=== PATIENT | female | born 1955 | race Caucasian/White ===

== ENCOUNTER → 2016-08-01 | Outpatient (CLI) | payer OTHER ==
[~2016-08-01] MED LIST: ALPR0.25 PO; PRLSR20 PO
--- NOTE | 2016-08-02 13:32 | MAMMOGRAPHY REPORT ---
BILATERAL DIGITAL SCREENING MAMMOGRAM TOMOSYNTHESIS WITH CAD: 08/01/2016 CLINICAL HISTORY: Routine screening. Patient has no complaints. TECHNIQUE: Breast tomosynthesis in addition to standard 2D mammography was performed. Current study was also evaluated with a Computer Aided Detection (CAD) system. COMPARISON: Comparison is made to exams dated: 07/28/2015 mammogram, 04/23/2013 mammogram, 06/14/2014 m ammogram, 04/22/2012 mammogram, 04/22/2011 mammogram, and 02/19/2010 mammogram - [facility]. BREAST COMPOSITION: The tissue of both breasts is heterogeneously dense, which may obscure small ma sses. FINDINGS: There is a possible round 5 mm mass seen posterior to the left nipple middle depth on the cc view only, which may represent a cyst. Additionally, there is an asymmetry seen within the right medial breast on the cc view which may represent normal overlapping fibroglandular tissue. Recomme nd spot compression tomosynthesis views and possible breast ultrasound for further evaluation. The remainder of both breasts are stable compared to prior exams, without suspicious masses, calcifi cations, or areas of architectural distortion noted. Scattered bilateral benign appearing calcifica tions are stable. A few other small circumscribed benign-appearing masses are seen within the left breast on the tomosynthesis images, which likely represent cysts. IMPRESSION: ACR BI-RADS CATEGORY 0: INCOMPLETE EVALUATION: NEED ADDITIONAL IMAGING EVALUATION Right breast asymmetry and possible left breast mass, for which additional imaging evaluation is rec ommended. The patient will be called to schedule an appointment. Approximately 10% of breast cancers are not detected with mammography. A negative mammographic repor t should not delay biopsy if a clinically suggestive mass is present. Nessa Ponce M.D. ah/:08/02/2016 08:22:18 Patient Biller: Flor WAKEFIELD(Marj)([place]), [facility] letter sent: Addl Imaging 0 BI-RADS Code: ACR BI-RADS Category 0: Incomplete Evaluation: Need Additional Imaging Evaluation
== END | disposition home or self-care (01) ==
LOC: C.MAMM 08:41
PROVIDERS: ATTEND Internal Medicine
DX: Z12.31 Encounter for screening mammogram for malignant neoplasm of breast (principal); N64.89 Other specified disorders of breast

== ENCOUNTER → 2016-08-08 | Outpatient (CLI) | payer OTHER ==
--- NOTE | 2016-08-08 15:08 | MAMMOGRAPHY REPORT ---
BILATERAL DIGITAL DIAGNOSTIC MAMMOGRAM TOMOSYNTHESIS AND TARGETED BILATERAL ULTRASOUND: 08/08/2016 CLINICAL HISTORY: Callback from screening mammogram for possible right breast asymmetry and possible left breast mass. TECHNIQUE: Breast tomosynthesis in addition to standard 2D mammography was performed. Spot raudel faby right CC and left CC and MLO tomosynthesis images including C views were obtained. COMPARISON: Comparison is made to exams dated: 08/01/2016 mammogram, 07/28/2015 mammogram, 06/14/2014 m ammogram, 04/23/2013 mammogram, 04/22/2012 mammogram, and 04/22/2011 mammogram - [facility]. BREAST COMPOSITION: The tissue of both breasts is heterogeneously dense, which may obscure small ma sses. FINDINGS: The previously seen possible round mass posterior to the nipple on the cc view left breas t is not clearly evident on the additional images. A linear scar marker was placed at the site of p rior surgery in the right breast. The linear scar marker overlies the asymmetry within the right me dial anterior breast, indicating that the asymmetry likely represents post surgical changes. Targeted ultrasound was performed of the right medial anterior breast in the region of the asymmetry . A hypoechoic region extending to the skin is seen in the right breast at 1:00, 2 cm from the nipp le, consistent with a postsurgical scar. A few small round circumscribed hypoechoic/anechoic masses are also seen in this region, the largest measuring 3 x 3 mm, consistent with complicated cysts. T he post surgical scar corresponds with the mammographic asymmetry and is benign. Targeted ultrasound was performed of the left 12:00/retroareolar, and 6:00 breast in the region of t he possible mass seen on one view only. Multiple round/oval anechoic and hypoechoic masses are note d, which are considered benign given the multiplicity and bilaterality and are consistent with simpl e and complicated cysts. The largest measures 6 x 6 mm in the left breast at 12:00 periareolar peace on. One of these cysts could correspond with the mammographic finding. Alternatively, the mammogra phic finding could represent normal overlapping fibroglandular tissue. Echogenic material is seen t hroughout mildly dilated milk ducts within the left subareolar region, consistent with proteinaceous material. The patient denies any left nipple discharge. No suspicious solid masses were evident. IMPRESSION: ACR BI-RADS CATEGORY 2: BENIGN, TARGETED ULTRASOUND ACR BI-RADS CATEGORY 2: BENIGN 1. The right breast asymmetry is benign and corresponds with a scar from prior surgery. 2. Multiple small benign simple and complicated cysts seen bilaterally on ultrasound. There is no mammographic or targeted sonographic evidence of malignancy. A 1 year screening mammogra m is recommended. The patient has been verbally notified of the results. Approximately 10% of breast cancers are not detected with mammography. A negative mammographic repor t should not delay biopsy if a clinically suggestive mass is present. Nessa Ponce M.D. ah/:08/08/2016 12:04:49 Seed Specialist: Clarence WAKEFIELD(R)(M), [facility] letter sent: Normal 1/2 BI-RADS Code: ACR BI-RADS Category 2: Benign Ultrasound BI-RADS: ACR BI-RADS Category 2: Benign
== END | disposition home or self-care (01) ==
LOC: C.MAMM 10:54
PROVIDERS: ATTEND Internal Medicine
DX: N60.01 Solitary cyst of right breast (principal); N60.02 Solitary cyst of left breast

== ENCOUNTER → 2017-08-04 | Outpatient (CLI) | payer OTHER ==
[~2017-08-04] MED LIST changes: -ALPR0.25 PO; +GLUCTAB7 PO; +MULT-506 PO; +SERT25TA PO
--- NOTE | 2017-08-05 07:38 | MAMMOGRAPHY REPORT ---
BILATERAL DIGITAL SCREENING MAMMOGRAM TOMOSYNTHESIS WITH CAD: 08/04/2017 CLINICAL HISTORY: Routine screening. Patient has no complaints. TECHNIQUE: Breast tomosynthesis in addition to standard 2D mammography was performed. Current study was also evaluated with a Computer Aided Detection (CAD) system. COMPARISON: Comparison is made to exams dated: 08/08/2016 mammogram, 08/01/2016 mammogram, 07/28/2015 m ammogram, 06/14/2014 mammogram, 04/23/2013 mammogram, and 04/22/2012 mammogram - [facility]. BREAST COMPOSITION: The tissue of both breasts is heterogeneously dense, which may obscure small mas ses. FINDINGS: There are a few benign-appearing round and punctate microcalcifications in the breasts. No suspicious mass, architectural distortion or cluster of suspicious microcalcifications is seen. IMPRESSION: ACR BI-RADS CATEGORY 1: NEGATIVE There is no mammographic evidence of malignancy. A 1 year screening mammogram is recommended. The pa tient will receive written notification of the results. Approximately 10% of breast cancers are not detected with mammography. A negative mammographic report should not delay biopsy if a clinically suggestive mass is present. Maddie Baker M.D. ay/:08/04/2017 11:23:47 Card Hand: Amina WAKEFIELD(Marj)(M), [facility] letter sent: Normal 1/2 BI-RADS Code: ACR BI-RADS Category 1: Negative
== END | disposition home or self-care (01) ==
LOC: C.MAMM 08:30
PROVIDERS: ATTEND Internal Medicine
DX: Z12.31 Encounter for screening mammogram for malignant neoplasm of breast (principal)

== ENCOUNTER 2022-04-18 13:40 | Inpatient (IN) ==
[2022-04-18 14:55] LABS: Basophils # (auto) 0.02 K/uL (0-0.2); Basophils % (auto) 0.1 %; Hematocrit (blood only) 42.1 % (34.1-44.9); Hemoglobin 14.2 g/dl (12.0-16.0); Immature Granulocytes # (auto) 0.07 K/uL (0.00-0.02); Immature Granulocytes % (auto) 0.4 %; Lymphocytes # (auto) 1.27 K/uL (1.2-3.4); Lymphocytes % (auto) 7.2 %; Mean Corpuscular Hemoglobin 28.3 pg (25.0-34.0); Mean Corpuscular Hgb Conc 33.7 g/dL (32.0-36.0); Mean Platelet Volume 9.3 fL (9.4-12.3); Monocytes # (auto) 0.84 K/uL (0.24-0.82); Monocytes % (auto) 4.7 %; Neutrophils # (auto) 15.53 K/uL (1.4-6.5); Neutrophils % (auto) 87.6 %; Platelet Count 298 K/uL (130-400); RDW Coefficient of Variation 12.9 % (11.5-14.5); RDW Standard Deviation 38.9 fL (36.4-46.3); Red Blood Count 5.01 M/uL (3.93-5.22); White Blood Count 17.73 K/ul (4.8-10.8)
[2022-04-18 15:27] LABS: Albumin Globulin Ratio 1.6 (0.9-2); Albumin Level 4.4 gm/dl (3.4-5.0); BUN Creatinine Ratio 24.3 (10-20); Calcium 9.1 mg/dl (8.5-10.1); Creatinine Clr Calc Pharmacy 92.9 ml/min; Est GFR (African American) 106.1 ml/min; Est GFR (Non-African American) 91.6 ml/min; Globulin 2.7 gm/dl (2.5-4.0); Potassium 4.2 mmol/L (3.5-5.1); Total Protein 7.1 gm/dl (6.0-8.3)
[2022-04-18] MEDS ORDERED: KETOROLAC TROMETHAMINE 15 MG/ML VIAL IV STA (16:18)
[2022-04-18] MEDS ORDERED: ONDANSETRON INJ 2 MG/ML 2 ML VIAL IV STA (16:18)
[2022-04-18] MEDS ORDERED: SODIUM CHLORIDE 0.9% 1000ML 1,000 ML IV ONE ×2 (16:18→18:56)
--- NOTE | 2022-04-18 17:51 | XRay Report ---
XR abdomen 2V w PA chest HISTORY: 66 years-old Female epigastric ruq pain acute upper abdominal pain COMPARISON: Bladder ultrasound of same day, CT abdomen and pelvis 10/11/2021 TECHNIQUE: PA view the chest with erect and supine views of the abdomen FINDINGS: Cardiac mediastinal and hilar silhouettes are within normal limits. No pneumothorax, pleural effusion , airspace consolidation or overt pulmonary edema. Unchanged right hemidiaphragmatic elevation. Bones appear grossly intact. Moderate pneumoperitoneum. The liver is upper limits of normal in size. Air-filled loops of bowel wit hin the central abdomen measuring up to 6.5 cm with air-fluid level. This is presumably a small bowel loop. Moderate fecal retention of the left hemicolon. No urolith identified. No pneumatosis. IMPRESSION: 1. Moderate pneumoperitoneum suspicious for perforated viscus. Correlation with CT abdomen and pelvis with IV contrast recommended. 2. Distended air and fluid-filled loop of small bowel within the central abdomen, also likely present on the study from 10/11/2021. ACT 112: Negative or not required by law. The above report was generated using voice recognition software. It may contain grammatical, syntax o r spelling errors. Electronically signed by: Bk Dawson M.D. 04/18/2022 5:49 PM
[2022-04-18] MEDS ORDERED: OPTIRAY 350 100ml IV ONE (18:03)
--- NOTE | 2022-04-18 18:05 | Ultrasound Report ---
US gallbladder CLINICAL HISTORY: RUQ pain TECHNIQUE: Multiple real-time sonographic images of the right upper quadrant were obtained. Comparison: Comparison is made to CT abdomen pelvis 10/11/2021 FINDINGS: Hepatomegaly is seen, the liver measures 19.2 cm in length. The main portal vein is hepatopedal. No f ocal mass lesions are seen. No intrahepatic ductal dilatation is seen. Low level internal echoes are identified layering dependently within the gallbladder, which is consistent with gallbladder slud ge. The gallbladder wall is not thickened. There is no pericholecystic fluid present. Lara's sign cannot be assessed as the patient received pain medication. The common duct measures 0.5 cm in diamet er at the level of the hepatic artery. The visualized portions of the pancreas appear normal. The right kidney shows normal echogenicity, cortical thickness and renal contour. The right kidney sh ows no evidence of hydronephrosis or mass. No ascites or free fluid is seen in Cope's pouch. IMPRESSION: Gallbladder sludge without evidence of acute cholecystitis. Lara's sign is not well evaluated due t o pain medication. Hepatomegaly is seen. ACT 112: Negative or not required by law. Electronically signed by: Laci Prescott M.D. 04/18/2022 6:03 PM
--- NOTE | 2022-04-18 18:07 | Emergency Department Note ---
History of Present Illness General Chief Complaint: Abdominal Pain Stated Complaint: ABDOMINAL PAIN Time Seen by Provider: 04/18/22 16:15 History of Present Illness Provider Complaint: abdominal pain Onset (ago): 1 day(s) Pain Consistency: constant Location: RUQ and epigastric Radiation: back Severity: moderate Maximum Pain Intensity: 7 Current Pain Intensity: 7 Quality: + stabbing and + sharp Relieved By: + nothing Exacerbated By: + nothing Context: + possible food poisoning (States it began after eating [place] [employer]); no foreign travel, no recent antibiotic use or no recent surgery/procedure Associated Symptoms: + nausea and + vomiting; no fever, no chills, no constipation, no dysuria, no hematemesis, no hematochezia, no melena, no hematuria, no headache, no neck pain and no chest pain Related Data Patient Confirmed : No Home Medications Medication Instructions Recorded Confirmed Type ascorbic acid (vitamin C) 500 mg 500 mg PO DAILY 06/09/18 04/18/22 History tablet (Vitamin C) elderberry fruit 460 mg-elderberry 1 cap PO DAILY 02/02/21 04/18/22 History flower 115 mg capsule cholecalciferol (vitamin D3) 25 25 mcg PO DAILY 10/11/21 04/18/22 History mcg (1,000 unit) capsule atorvastatin 10 mg tablet 10 mg PO QPM #90 tabs 02/13/22 04/18/22 Rx omeprazole 20 mg capsule,delayed 20 mg PO DAILY #30 caps 02/13/22 04/18/22 Rx release doxycycline hyclate 100 mg capsule 100 mg PO BID 04/18/22 04/18/22 History Allergies Allergy/AdvReac Type Severity Reaction Status Date / Time Penicillins Allergy Intermediate HIVES A Verified 04/18/22 16:34 CHILD escitalopram AdvReac Intermediate INCREASED Verified 04/18/22 16:34 ANXIETY hydrocodone AdvReac Intermediate HEART Verified 04/18/22 16:34 RACES, FEELS LOOPY oxycodone AdvReac Intermediate HEART Verified 04/18/22 16:34 RACES, FEELS LOOPY venlafaxine AdvReac Intermediate INCREASED Verified 04/18/22 16:34 ANXIETY Past Med/Surg History Medical History Acid reflux disease Anxiety Aortic atherosclerosis on CT 09/2021 Chest pain (04/02/13) Degenerative disc disease LUMBAR Dizziness SANTANA (dyspnea on exertion) Encounter for pre-operative examination Gait disturbance Gastritis GERD (gastroesophageal reflux disease) Headache Near syncope Osteoarthritis Peripheral neuropathy Sensation of fullness in left ear Strain of knee and leg, right Tachycardia Varicose vein of leg LEFT LEG Vertigo Vertigo Surgical History Family history of reaction to anesthesia NAUSEA AND VERTIGO H/O: hysterectomy History of appendectomy History of colonoscopy History of herniorrhaphy History of hysterectomy History of tooth extraction Nausea and vomiting after administration of anesthetic agent Family History Uncle Family hx of colon cancer Father Coronary heart disease Brother Skin cancer Afib Mother Stroke Social History Smoking Status: Never smoker Second Hand Exposure: No; Hx Alcohol Use: Yes Hx Substance Use: No Preferred Language: Turkish Communication Ability: Effective Visual Impairment: No Limitations Hearing Ability: Normal Draw 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 Required: No Beliefs That Will Affect Care: None Current Living Situation: Alone current occupational status: employed Feels Safe at Home: Yes Assistive Devices: Contacts and Glasses Physical Exam Vital Signs: Vital Signs - 24 hr 04/18/22 13:55 04/18/22 13:56 04/18/22 15:40 Temperature 36.5 C Temperature Source Temporal Artery Sc an Pulse Rate 125 H 103 H Pulse Rate [Apical ] 105 H Pulse Rhythm Regular Regular Pulse Rhythm [Apic al] Regular Pulse Strength Normal Pulse Strength [Ap ical] Normal Respiratory Rate 20 20 20 Respiratory Effort / Characteristics Non-Labored Sponta neous Non-Labored Respiratory Depth Normal Normal Respiratory Patter n Regular Regular Blood Pressure 135/87 Blood Pressure [Le ft Arm] 145/88 H Blood Pressure Joan n 103 Blood Pressure Joan n [Left Arm] 107 Blood Pressure Pos ition Sitting Blood Pressure Pos ition [Left Arm] Lying Pulse Oximetry 97 97 97 Oxygen Delivery Me thod Room Air Room Air Room Air Sepsis Recent Feve r Within 48 Hours No Sepsis New/Unexpla ined Change in Men jaswant Status No Sepsis Action Take n by Nursing No Action Required 04/18/22 17:00 04/18/22 19:00 Temperature Temperature Source Pulse Rate Pulse Rate [Apical ] 103 H 101 H Pulse Rhythm Pulse Rhythm [Apic al] Regular Regular Pulse Strength Pulse Strength [Ap ical] Normal Normal Respiratory Rate 20 20 Respiratory Effort / Characteristics Non-Labored Non-Labored Respiratory Depth Normal Normal Respiratory Patter n Regular Regular Blood Pressure Blood Pressure [Le ft Arm] 138/77 137/81 Blood Pressure Joan n Blood Pressure Joan n [Left Arm] 97 99 Blood Pressure Pos ition Blood Pressure Pos ition [Left Arm] Lying Pulse Oximetry 97 97 Oxygen Delivery Me thod Room Air Room Air Sepsis Recent Feve r Within 48 Hours Sepsis New/Unexpla ined Change in Men jaswant Status Sepsis Action Take n by Nursing Physical Exam: Physical Exam GENERAL: She is oriented to person, place, and time. She appears well-developed and well-nourished. She does not appear distressed. HENT: Exam performed. -Head: Normocephalic and atraumatic. -Right Ear: External ear normal. No mastoid tenderness. -Left Ear: External ear normal. No mastoid tenderness. -Mouth/Throat: The oropharynx is clear and moist. No trismus in the jaw. No dental abscesses or uvula swelling. No oropharyngeal exudate or tonsillar abscesses. EYES: Conjunctivae and EOM are normal. Pupils are equal, round, and reactive to light. Right eye exhibits no discharge. Left eye exhibits no discharge. No scl eral icterus. NECK: Normal range of motion. Neck supple. No JVD present. No spinous process tenderness present. No carotid bruit present. No rigidity. No tracheal deviation and normal range of motion present. No Brudzinski's sign and no Kernig's sign noted. CV: Normal rate, regular rhythm, normal heart sounds and intact distal pulses. There is no peripheral edema. Palpable radial pulses bue. PULM/CHEST: Effort normal and breath sounds normal. No respiratory distress. No stridor. She has no wheezes. She has no rales. -Chest Wall: She exhibits no tenderness. ABD: The abdomen is soft. Bowel sounds are normal. She has no distension. No mass is present. There is tenderness to palpation of the epigastric area and right upper quadrant. There is no rebound, no guarding, Lara's sign positive and no tenderness at McBurney's point. Rovsig negative MUSC/SKEL: Normal range of motion. There is no peripheral edema, tenderness or deformity. LYMPH: No cervical adenopathy. NEURO: She is alert and oriented to person, place, and time. She has normal strength. No cranial nerve deficit or sensory deficit. Coordination and gait normal. GCS eye subscore is 4. GCS verbal subscore is 5. GCS motor subscore is 6. Cerebellar tests wnl. SKIN: Skin is warm and dry. She is not diaphoretic. PSYCH: She has a normal mood and affect. Behavior is normal. Judgment and thought content normal. Course Course 1615: The patient was evaluated in room C1. A complete history and physical exam was performed Cardiac monitoring: An order was placed for continuous cardiac monitoring. The monitor shows a rate of 120 with sinus tachycardia rhythm 1756: Vital signs stable. Labs show leukocytosis of 17 otherwise within normal limits. Acute abdominal series shows free air under the diaphragm is viewed by me. Called to Dr. Dill on-call general surgery who asked that his CT scan with IV contrast only be performed on the patient. Zosyn ordered for the patient. 1846: Vital signs stable. CT of the abdomen pelvis shows acute sigmoid diverticulitis with moderate pneumoperitoneum compatible with perforation. There is probable intramural abscess of the sigmoid colon measuring 1.5 cm with no drainable abscess. Spoke with Dr. Dill and his PA Bora who is at bedside. They states they will admit the patient to their service. Administered Medications Ciprofloxacin (Cipro / D5w) 400 mg in 200 mls @ 100 mls/hr IV NOW STA; Protocol Stop: 04/18/22 22:29 Last Admin: 04/18/22 20:48 Dose: 100 mls/hr Documented By: CARLOS Morphine Sulfate (Morphine Sulfate 4 Mg/Ml 1 Ml Carp\Vial) 3 mg IV Q3H PRN PRN Reason: Severe Pain Stop: 05/02/22 19:10 Last Admin: 04/18/22 20:48 Dose: 3 mg Documented By: CARLOS Discontinued Medications Sodium Chloride (Nss 1000ml) 1,000 mls @ 999 mls/hr IV .Q1H1M ONE Stop: 04/18/22 17:18 Last Infusion: 04/18/22 17:30 Dose: 0 mls/hr Documented By: Admin: 04/18/22 16:30 Dose: 999 mls/hr Documented By: CARLOS Piperacillin Sod/Tazobactam Sod (Zosyn) 4.5 gm in 120 mls @ 240 mls/hr IV NOW ONE Stop: 04/18/22 18:25 Last Admin: 04/18/22 18:54 Dose: Not Given Documented By: CARLOS Sodium Chloride (Nss 1000ml) 1,000 mls @ 999 mls/hr IV .Q1H1M ONE Stop: 04/18/22 19:56 Last Admin: 04/18/22 20:37 Dose: 999 mls/hr Documented By: CARLOS Ioversol (Optiray 350 100ml) 89 ml IV ONCE ONE Stop: 04/18/22 18:04 Last Admin: 04/18/22 18:04 Dose: 89 ml Documented By: NATHALY Ketorolac Tromethamine (Ketorolac Tromethamine 15 Mg/Ml Vial) 15 mg IV NOW STA Stop: 04/18/22 16:19 Last Admin: 04/18/22 16:30 Dose: 15 mg Documented By: CARLOS Ondansetron HCl (Ondansetron Inj 2 Mg/Ml 2 Ml Vial) 4 mg IV NOW STA Stop: 04/18/22 16:19 Last Admin: 04/18/22 16:30 Dose: 4 mg Documented By: CARLOS Medical Decision Making Laboratory Data Attestation: I reviewed the patient's lab results. Result diagrams: 04/18/22 14:41 04/18/22 14:41 Lab Results 04/18/22 04/18/22 04/18/22 Range/Units 14:41 14:41 18:15 WBC 17.73 H (4.8-10.8) K/ul RBC 5.01 (3.93-5.22) M/uL Hgb 14.2 (12.0-16.0) g/dl Hct 42.1 (34.1-44.9) % MCV 84.0 (80.0-100.0) fL MCH 28.3 (25.0-34.0) pg MCHC 33.7 (32.0-36.0) g/dL RDW Std Deviation 38.9 (36.4-46.3) fL RDW Coeff of Candy 12.9 (11.5-14.5) % Plt Count 298 (130-400) K/uL MPV 9.3 L (9.4-12.3) fL Immature Gran % (Auto) 0.4 % Neut % (Auto) 87.6 % Lymph % (Auto) 7.2 % Geary % (Auto) 4.7 % Eos % (Auto) 0.0 % Baso % (Auto) 0.1 % Neut # (Auto) 15.53 H (1.4-6.5) K/uL Lymph # (Auto) 1.27 (1.2-3.4) K/uL Geary # (Auto) 0.84 H (0.24-0.82) K/uL Eos # (Auto) 0.00 (0-0.50) K/uL Baso # (Auto) 0.02 (0-0.2) K/uL Immature Gran # (Auto) 0.07 H (0.00-0.02) K/uL Sodium 135 L (136-145) mmol/L Potassium 4.2 (3.5-5.1) mmol/L Chloride 100 (98-107) mmol/L Carbon Dioxide 26 (21-32) mmol/L Anion Gap 9 (3-11) BUN 17 (6-23) mg/dl Creatinine 0.70 (0.6-1.2) mg/dl Est Cr Clr Drug Dosing 92.9 ml/min Est GFR ( Amer) 106.1 ml/min Est GFR (Non-Af Amer) 91.6 ml/min BUN/Creatinine Ratio 24.3 H (10-20) Glucose 129 H (70-99(Fasting)) mg/dl Calcium 9.1 (8.5-10.1) mg/dl Total Bilirubin 1.0 (0.2-1.0) mg/dl AST 22 (13-39) U/L ALT 31 (7-52) U/L Alkaline Phosphatase 68 (34-104) U/L Total Protein 7.1 (6.0-8.3) gm/dl Albumin 4.4 (3.4-5.0) gm/dl Globulin 2.7 (2.5-4.0) gm/dl Albumin/Globulin Ratio 1.6 (0.9-2) Lipase 7 L (11-82) U/L SARS-CoV-2, RNA, NAAT NEGATIVE (NEGATIVE) Imaging Data Attestation: I personally reviewed and interpreted this imaging study as follows: My Impression: Acute abdominal series: Free air under the diaphragm Radiologist's Impression: Gallbladder Ultrasound 04/18/22 13:56 US gallbladder CLINICAL HISTORY: RUQ pain TECHNIQUE: Multiple real-time sonographic images of the right upper quadrant were obtained. Comparison: Comparison is made to CT abdomen pelvis 10/11/2021 FINDINGS: Hepatomegaly is seen, the liver measures 19.2 cm in length. The main portal vein is hepatopedal. No focal mass lesions are seen. No intrahepatic ductal dilatation is seen. Low level internal echoes are identified layering depende ntly within the gallbladder, which is consistent with gallbladder sludge. The gallbladder wall is not thickened. There is no pericholecystic fluid present. Lara's sign cannot be assessed as the patient received pain medication. The common duct measures 0.5 cm in diameter at the level of the hepatic artery. The visualized portions of the pancreas appear normal. The right kidney shows normal echogenicity, cortical thickness and renal contour. The right kidney shows no evidence of hydronephrosis or mass. No ascites or free fluid is seen in Cope's pouch. IMPRESSION: Gallbladder sludge without evidence of acute cholecystitis. Lara's sign is not well evaluated due to pain medication. Hepatomegaly is seen. ACT 112: Negative or not required by law. Electronically signed by: Laci Prescott M.D. 04/18/2022 6:03 PM Chest/Abdomen X-ray 04/18/22 16:22 XR abdomen 2V w PA chest HISTORY: 66 years-old Female epigastric ruq pain acute upper abdominal pain COMPARISON: Bladder ultrasound of same day, CT abdomen and pelvis 10/11/2021 TECHNIQUE: PA view the chest with erect and supine views of the abdomen FINDINGS: Cardiac mediastinal and hilar silhouettes are within normal limits. No pneumothorax, pleural effusion, airspace consolidation or overt pulmonary edema. Unchanged right hemidiaphragmatic elevation. Bones appear grossly intact. Moderate pneumoperitoneum. The liver is upper limits of normal in size. Air- filled loops of bowel within the central abdomen measuring up to 6.5 cm with air-fluid level. This is presumably a small bowel loop. Moderate fecal retention of the left hemicolon. No urolith identified. No pneumatosis. IMPRESSION: 1. Moderate pneumoperitoneum suspicious for perforated viscus. Correlation with CT abdomen and pelvis with IV contrast recommended. 2. Distended air and fluid-filled loop of small bowel within the central abdomen, also likely present on the study from 10/11/2021. ACT 112: Negative or not required by law. The above report was generated using voice recognition software. It may contain grammatical, syntax or spelling errors. Electronically signed by: Bk Dawson M.D. 04/18/2022 5:49 PM Abdomen/Pelvis CT 04/18/22 17:[address] WITH IV CONTRAST CT DOSE: 567.71 mGy.cm HISTORY: Acute generalized abdominal pain with pneumoperitoneum perf TECHNIQUE: Multiaxial CT images of the abdomen and pelvis were performed fol lowing the IV administration of 89 cc of Optiray, A dose lowering technique was utilized adhering to the principles of ALARA. COMPARISON STUDY: CT abdomen and pelvis 10/11/2021 FINDINGS: Linear subsegmental right basilar atelectasis. Unchanged right hemidiaphragmatic elevation. Unremarkable spleen, pancreas and adrenal glands. Mildly distended gallbladder. No biliary ductal dilation. Unremarkable liver. Patency of the hepatic and portal veins. Punctate nonobstructing calculus of the inferior pole right kidney redemonstrated. Symmetric enhancement of the kidneys. No hydronephrosis. Mild nonspecific urinary bladder wall thickening. Hysterectomy. Atherosclerosis of the aorta without aneurysm. No lymphadenopathy identified. Tiny hiatal hernia. Moderate pneumoperitoneum. Trace pelvic ascites. Colonic diverticulosis with findings suggestive of mild acute diverticulitis. Probable intramural abscess measuring 1.5 cm on image 352. Scattered small and large bowel air-fluid levels. The cecum is again noted within the left paracentral mid abdomen on image 218 measuring 5.8 cm transversely.. Decompressed descending colon with wall thickening. No drainable fluid collection. No acute fracture. IMPRESSION: 1. Acute sigmoid diverticulitis. Moderate pneumoperitoneum compatible with perf oration. 2. Probable intramural abscess of the sigmoid colon measuring 1.5 cm. No drainable abscess identified. 3. No bowel obstruction. 4. Scattered small and large bowel air-fluid levels suggestive of a reactive ileus. ACT 112: Negative or not required by law. The above report was generated using voice recognition software. It may contain grammatical, syntax or spelling errors. Electronically signed by: Bk Dawson M.D. 04/18/2022 6:32 PM [facility] Narrative 1615: The patient was evaluated in room C1. A complete history and physical exam was performed Cardiac monitoring: An order was placed for continuous cardiac monitoring. The monitor shows a rate of 120 with sinus tachycardia rhythm 1756: Vital signs stable. Labs show leukocytosis of 17 otherwise within normal limits. Acute abdominal series shows free air under the diaphragm is viewed by me. Called to Dr. Dill on-call general surgery who asked that his CT scan with IV contrast only be performed on the patient. Zosyn ordered for the patient. 1846: Vital signs stable. CT of the abdomen pelvis shows acute sigmoid diverticulitis with moderate pneumoperitoneum compatible with perforation. There is probable intramural abscess of the sigmoid colon measuring 1.5 cm with no drainable abscess. Spoke with Dr. Dill and his PA Bora who is at bedside. They states they will admit the patient to their service. Impression & Plan Perforation of sigmoid colon due to diverticulitis, Colonic diverticular abscess Discharge Plan Visit Data Chief Complaint: Abdominal Pain Stated Complaint: ABDOMINAL PAIN ED Provider: Oniel Mcknight Discharge Problem: Perforation of sigmoid colon due to diverticulitis, Colonic diverticular abscess Patient Disposition: Admitted As Inpatient Forms Stand Alone Forms: My [facility] Prescriptions Prescriptions: No Action omeprazole 20 mg capsule,delayed release(DR/EC) 20 mg PO DAILY Qty: 30 5RF atorvastatin 10 mg tablet 10 mg PO QPM Qty: 90 1RF elderberry fruit and flower 460-115 mg capsule 1 cap PO DAILY cholecalciferol (vitamin D3) 25 mcg (1,000 unit) capsule 25 mcg PO DAILY ascorbic acid (vitamin C) [Vitamin C] 500 mg Tablet 500 mg PO DAILY doxycycline hyclate 100 mg capsule 100 mg PO BID Rx Instructions: STARTED 04/11/22 FOR 7 DAYS. Referrals Referrals: Henny Bishop MD [Primary Care Provider] -
--- NOTE | 2022-04-18 18:35 | CT Scan Report ---
ABDOMEN AND PELVIS CT WITH IV CONTRAST CT DOSE: 567.71 mGy.cm HISTORY: Acute generalized abdominal pain with pneumoperitoneum perf TECHNIQUE: Multiaxial CT images of the abdomen and pelvis were performed following the IV administrat ion of 89 cc of Optiray, A dose lowering technique was utilized adhering to the principles of ALARA. COMPARISON STUDY: CT abdomen and pelvis 10/11/2021 FINDINGS: Linear subsegmental right basilar atelectasis. Unchanged right hemidiaphragmatic elevation. Unremarkable spleen, pancreas and adrenal glands. Mildly distended gallbladder. No biliary ductal di lation. Unremarkable liver. Patency of the hepatic and portal veins. Punctate nonobstructing calculus of the inferior pole right kidney redemonstrated. Symmetric enhancement of the kidneys. No hydroneph rosis. Mild nonspecific urinary bladder wall thickening. Hysterectomy. Atherosclerosis of the aorta w ithout aneurysm. No lymphadenopathy identified. Tiny hiatal hernia. Moderate pneumoperitoneum. Trace pelvic ascites. Colonic diverticulosis with find ings suggestive of mild acute diverticulitis. Probable intramural abscess measuring 1.5 cm on image 3 52. Scattered small and large bowel air-fluid levels. The cecum is again noted within the left parace ntral mid abdomen on image 218 measuring 5.8 cm transversely.. Decompressed descending colon with wal l thickening. No drainable fluid collection. No acute fracture. IMPRESSION: 1. Acute sigmoid diverticulitis. Moderate pneumoperitoneum compatible with perforation. 2. Probable intramural abscess of the sigmoid colon measuring 1.5 cm. No drainable abscess identified . 3. No bowel obstruction. 4. Scattered small and large bowel air-fluid levels suggestive of a reactive ileus. ACT 112: Negative or not required by law. The above report was generated using voice recognition software. It may contain grammatical, syntax o r spelling errors. Electronically signed by: Bk Dawson M.D. 04/18/2022 6:32 PM
[2022-04-18] MEDS: PIPERACILLIN/TAZOBACTAM 4.5 GM/120 ML BAG IV ONE ×2 (18:51→18:54)
[2022-04-18] MEDS ORDERED: MoRPHine SULFATE 4 MG/ML 1 ML CARP\\VIAL IV PRN (19:11)
[2022-04-18] MEDS ORDERED: ONDANSETRON INJ 2 MG/ML 2 ML VIAL IV PRN (19:11)
--- NOTE | 2022-04-18 19:15 | History & Physical Report ---
Date of Service April 18, 2022 Assessment & Plan (1) Perforation of sigmoid colon due to diverticulitis: Plan: Due to the patient's clinical presentation, labs, and findings on imaging she will be admitted to the hospital proceeding as follows: N.p.o. status to be implemented Antibiotics will be initiated. Initial treatment of antibiotics was to be Zosyn however the patient reports a penicillin allergy and she is reluctant to take any penicillin derivatives. We will therefore place her on ciprofloxacin and Flagyl Analgesia be provided Antiemetics to be provided We will hydrate the patient aggressively with intravenous fluids. She has received 1 L of normal saline solution in the emergency department. I have ordered an additional 1 L to be bolused and then we run her IV fluids at 150 cc/h Serial labs to be followed At the present time we will attempt to treat the patient in a conservative manner with nonoperative interventions as noted above. I explained to the patient the rationale for attempting conservative treatment as an emergency surgery would almost certainly necessitate a temporary colostomy. I did explain to the patient that we will continue to monitor her clinically with serial exams and serial labs and if she does note significant clinical deterioration exploratory and emergency surgery may be required. She did express her understanding of this. Will use SCDs for DVT prevention, no chemical means until it is ascertain whether or not the patient would require any surgical or procedural intervention I discussed CODE STATUS with the patient and she notes an event of cardiopulmonary should be a level 1 full code Additional recommendations be forthcoming based on her clinical course as it unfolds History of Present Illness Chief Complaint: Abdominal pain Primary Care Provider: Henny Bishop MD This is a 66-year-old female who presented to the emergency department secondary to abdominal pain. Patient states that she was in her usual state of health yesterday and she attended a high school wrestling match. She simply went to [employer] and ultimately developed some abdominal pain shortly thereafter. She does note that her niece who also ate the same food that she ate also had GI upset and therefore the patient did not seek medical attention initially as she merely thought she had a gastroenteritis. The patient notes that throughout the night she was having diarrhea without melena or hematochezia. She notes that her abdominal pain got progressively worse to the point today when she developed a stabbing pain greatest in her lower abdomen in a bandlike fashion. She has had associated nausea and vomiting. She denies any fevers but did report some shakes or chills. She notes that the pain is nonradiating but does get worse when she walks and it feels somewhat better when she lies still. Patient does report that she has had prior abdominal surgeries. She had an exploratory laparotomy at which time she underwent an appendectomy. She is also had most recently in 2006 a hysterectomy that was performed secondary to fibroids and bleeding. The patient does report that she has had a colonoscopy in June 2018. During this colonoscopy the patient was found to have a 10 mm polyp in the transverse colon that was removed with a snare. She was also noted to have diverticulosis of the sigmoid colon and nonbleeding internal hemorrhoids. The patient also further relates that in October 2021 she did not have diverticulitis that was treated successfully as an outpatient. Since arrival to the emergency department the patient has had labs and imaging which independent reviewed. A gallbladder ultrasound showed gallbladder sludge without evidence of acute cholecystitis. Patient subsequently had a obstruction series performed that showed moderate pneumoperitoneum which was suspicious for perforated viscus. A CT scan of the abdomen was ultimately performed that showed acute sigmoid diverticulitis with moderate pneumoperitoneum compatible with a perforation. There is also a 1.5 cm intramural abscess of the sigmoid colon noted. This was not felt to be amendable to percutaneous drainage. There is no evidence of bowel obstruction. (The patient did have a CT scan on 10/11/2021 which showed acute sigmoid diverticulitis with no intraperitoneal free air or abscess.) Labs include a CBC her white blood cell count was elevated 17.7. Hemoglobin and hematocrit are both within normal range as was the platelet count. Chemistry profile showed sodium is 135. Potassium, BUN, and creatinine were all within the normal range. There is no elevation of LFTs or lipase and a COVID test was noted to be negative. Since arrival to the emergency department the patient has received IV fluids in the form of 1 L of normal saline solution. She is also received analgesics in the form of 15 mg of Toradol. Initial antibiotic choice was to be Zosyn however the patient reports an allergy to penicillin which causes hives and she was reluctant to take any palliative penicillin derivatives and therefore her antibiotics were switched to ciprofloxacin and Flagyl. At the time of my interview the patient was uncomfortable but she was able to ambulate independently to the restroom and she was in no distress. It is not eworthy to mention that she was afebrile and normotensive. She was noted to have a slight tachycardia with a heart rate of approximately 113 bpm. Allergies Allergy/AdvReac Type Severity Reaction Status Date / Time Penicillins Allergy Intermediate HIVES A Verified 04/18/22 16:34 CHILD escitalopram AdvReac Intermediate INCREASED Verified 04/18/22 16:34 ANXIETY hydrocodone AdvReac Intermediate HEART Verified 04/18/22 16:34 RACES, FEELS LOOPY oxycodone AdvReac Intermediate HEART Verified 04/18/22 16:34 RACES, FEELS LOOPY venlafaxine AdvReac Intermediate INCREASED Verified 04/18/22 16:34 ANXIETY Home Medications Medication Instructions Recorded Confirmed Type ascorbic acid (vitamin C) 500 mg 500 mg PO DAILY 06/09/18 04/18/22 History tablet (Vitamin C) elderberry fruit 460 mg-elderberry 1 cap PO DAILY 02/02/21 04/18/22 History flower 115 mg capsule cholecalciferol (vitamin D3) 25 25 mcg PO DAILY 10/11/21 04/18/22 History mcg (1,000 unit) capsule atorvastatin 10 mg tablet 10 mg PO QPM #90 tabs 02/13/22 04/18/22 Rx omeprazole 20 mg capsule,delayed 20 mg PO DAILY #30 caps 02/13/22 04/18/22 Rx release doxycycline hyclate 100 mg capsule 100 mg PO BID 04/18/22 04/18/22 History Past Med/Surg History Medical History Acid reflux disease Anxiety Aortic atherosclerosis on CT 09/2021 Chest pain (04/02/13) Degenerative disc disease LUMBAR Dizziness SANTANA (dyspnea on exertion) Encounter for pre-operative examination Gait disturbance Gastritis GERD (gastroesophageal reflux disease) Headache Near syncope Osteoarthritis Peripheral neuropathy Sensation of fullness in left ear Strain of knee and leg, right Tachycardia Varicose vein of leg LEFT LEG Vertigo Vertigo Surgical History Family history of reaction to anesthesia NAUSEA AND VERTIGO H/O: hysterectomy History of appendectomy History of colonoscopy History of herniorrhaphy History of hysterectomy History of tooth extraction Nausea and vomiting after administration of anesthetic agent Family History Uncle Family hx of colon cancer Father Coronary heart disease Brother Skin cancer Afib Mother Stroke Social History Smoking Status: Never smoker Second Hand Exposure: No; Hx Alcohol Use: Yes Hx Substance Use: No Preferred Language: Slovak Communication Ability: Effective Visual Impairment: No Limitations Hearing Ability: Normal Supervisor Cooler Service Required: No Beliefs That Will Affect Care: None Current Living Situation: Alone current occupational status: employed Feels Safe at Home: Yes Safety Concerns: Feels Safe At This Time Assistive Devices: None Review of Systems Constitutional: + chills; no fever Eyes: no eye pain Ear, Nose, Mouth, Throat: no ear pain Respiratory: no cough and no dyspnea Cardiovascular: no chest pain Gastrointestinal: as per Subjective / HPI, + abdominal pain, + nausea and + vomiting Genitourinary: no dysuria Musculoskeletal: no back pain Integumentary: no rash Neurologic: no localized weakness Physical Exam Constitutional: well developed and well nourished; no acute distress Eyes: no conjunctival abnormality ENMT: Ears: no hearing impairment and no external ear abnormality Mouth: no oropharynx abnormality Neck: trachea midline Respiratory: normal respiratory effort, lungs clear to auscultation Cardiovascular: Rate/Rhythm: regular rate, regular rhythm and + tachycardic Vessels: radial pulses present Gastrointestinal (Abdomen): Abdomen is minimally distended and nonrigid. The patient did have some rebound tenderness noted in the lower quadrants of her abdomen. There was pain with palpation that appear to be greatest in the left lower quadrant and to a lesser degree the right lower quadrant. The patient had a well-healed midline incision. Musculoskeletal: No calf tenderness. Feet are warm and non-mottled Skin: no rashes Neurologic: moves all extremities Psychiatric: A+Ox3, euthymic affect Results & Data Results & Data ([facility]) Vital Signs (Past 12 Hours) Vital Signs Temp Pulse Resp BP Pulse Ox O2 Del Method 04/18/22 13:55 36.5 C 125 H 20 135/87 97 Room Air Supervising Physician Co-Signing Physician Notes Patient discussed with PATRICIA Hedrick, labs and imaging reviewed, agree with above. 66 y/o female with diverticulitis and small to moderate pneumoperitoneum. resolving tachycardia, normotensive, afebrile. abd soft, ttp, some localized guarding. CT personally reviewed and interpreted, agree with diverticulitis and pneumoperitoneum. wbc 17. non operative management for now, bowel rest, iv abx, iv fluids. PG Care Time/CCT Total # of Minutes Spent Total Time Spent with Patient: Total time spent is greater than 50% in coordination of care (as documented) at patient's floor/unit and/or counseling patient: Coding Level of Care Code 85933 INT INP/OBS CARE MIN Diagnoses Perforation of sigmoid colon due to diverticulitis K57.20
[2022-04-18] MEDS ORDERED: CIPROFLOXACIN / D5W 400 MG/200 ML BAG IV STA (20:30)
[2022-04-18] MEDS ORDERED: metroNIDAZOLE 500 MG/100 ML BAG IV STA (20:30)
[2022-04-18 22:37] LABS: Appearance Urine Clear (Clear); Bilirubin Urine Negative (Negative); Blood Urine Negative (Negative); Color Urine Yellow; Glucose Urine UA Negative (Negative); Ketones Urine Negative (Negative); Leukocyte Esterase Urine Negative (Negative); Nitrite Urine Negative (Negative); Protein Urine Negative (Negative); Urobilinogen Urine Negative (Negative)
[2022-04-18] MEDS: SODIUM CHLORIDE 0.9% 1000ML 1,000 ML IV SCH (23:10)
[2022-04-19] MEDS: SODIUM CHLORIDE 0.9% 1000ML 1,000 ML IV SCH ×3 (05:28→14:07)
[2022-04-19 06:26] LABS: Basophils # (auto) 0.01 K/uL (0-0.2); Basophils % (auto) 0.1 %; Eosinophils # (auto) 0.01 K/uL (0-0.50); Eosinophils % (auto) 0.1 %; Hematocrit (blood only) 34.1 % (34.1-44.9); Hemoglobin 11.5 g/dl (12.0-16.0); Immature Granulocytes # (auto) 0.06 K/uL (0.00-0.02); Immature Granulocytes % (auto) 0.5 %; Lymphocytes # (auto) 1.29 K/uL (1.2-3.4); Lymphocytes % (auto) 11.7 %; Mean Corpuscular Hemoglobin 28.3 pg (25.0-34.0); Mean Corpuscular Hgb Conc 33.7 g/dL (32.0-36.0); Mean Platelet Volume 9.4 fL (9.4-12.3); Monocytes # (auto) 0.57 K/uL (0.24-0.82); Monocytes % (auto) 5.2 %; Neutrophils # (auto) 9.12 K/uL (1.4-6.5); Neutrophils % (auto) 82.4 %; Platelet Count 220 K/uL (130-400); RDW Coefficient of Variation 13.1 % (11.5-14.5); RDW Standard Deviation 39.7 fL (36.4-46.3); Red Blood Count 4.06 M/uL (3.93-5.22); White Blood Count 11.06 K/ul (4.8-10.8)
[2022-04-19 06:52] LABS: BUN Creatinine Ratio 19.7 (10-20); Calcium 7.9 mg/dl (8.5-10.1); Est GFR (Non-African American) 95.8 ml/min; Potassium 3.8 mmol/L (3.5-5.1)
[2022-04-19] MEDS: ACETAMINOPHEN 1,000 MG/100 ML VIAL IV PRN ×2 (08:23→20:45)
--- NOTE | 2022-04-19 09:07 | Surgery Progress Note ---
Date of Service April 19, 2022 Assessment & Plan (1) Perforation of sigmoid colon due to diverticulitis: Plan: Patient here with acute sigmoid diverticulitis with perforation and 1.5cm intramural abscess Labs show WBC 11 (17). Vitals stable with some noted improving tachycardia (HR low 100's). Afebrile On exam abdomen soft, with tenderness elicited across lower abdomen, worse in LLQ Continue a trial of supportive care, bowel rest, NPO/IVF, and IV abx-cipro/flagy l Will follow closely should she have any changes in clinical status [facility] surgery covering the weekend Admission and Anticipated Discharge Date Admission Date: April 18, 2022 Supervising Physician Co-Signing Physician Notes Patient seen examined, labs image reviewed, agree with above. 66-year-old female admitted with diverticulitis with pneumoperitoneum and intramural abscess. Overall feels much better than she did on admission. Still has some left lower quadrant cramping but the upper abdominal discomfort is improved. She is starting to feel little hungry. On exam she is afebrile with decreasing tachycardia and otherwise stable vitals. Her abdomen is soft, tender to palpation in the left lower quadrant, no guarding or rebound. WBC 11 down from 17. We will continue with IV antibiotics until white blood cell count normalizes and afebrile. She may start clear liquids this afternoon if she feels up to it. Dr. Mason covering over the weekend. Subjective Patient reports abdominal discomfort, not worsening since admission. No nausea/vomiting. Physical Exam Physical Exam: awake/alert, no distress Gastrointestinal (Abdomen): Inspection/Auscultation: + abdomen distended (mild) Percussion/Palpation: + abdomen tender (discomfort across lower abdomen, but ttp worse in LLQ) and abdomen soft Results & Data ([facility]) Vital Signs (Past 12 Hours) Vital Signs Temp Pulse Pulse Pulse Resp BP Pulse Ox 04/19/22 07:29 37.1 C 102 H 20 129/75 94 04/19/22 06:57 99 H 04/19/22 05:55 102 H 04/19/22 02:19 100 H 04/19/22 03:02 37.1 C 101 H 18 108/69 98 04/18/22 22:35 102 H 04/18/22 22:42 04/18/22 22:42 37.1 C 106 H 18 129/73 96 04/18/22 22:19 37.1 C 106 H 18 129/73 96 O2 Del Method 04/19/22 07:29 Room Air 04/19/22 06:57 04/19/22 05:55 04/19/22 02:19 04/19/22 03:02 Room Air 04/18/22 22:35 04/18/22 22:42 Room Air 04/18/22 22:42 Room Air 04/18/22 22:19 Room Air PG Care Time/CCT Total # of Minutes Spent Total Time Spent with Patient: Total time spent is greater than 50% in coordination of care (as documented) at patient's floor/unit and/or counseling patient: Coding Level of Care Code 08117 SUB INP/OBS CARE 05/08MIN Diagnoses Perforation of sigmoid colon due to diverticulitis K57.20
[2022-04-19] MEDS: metroNIDAZOLE 500 MG/100 ML BAG IV SCH ×2 (09:25→16:39)
[2022-04-19] MEDS: CIPROFLOXACIN / D5W 400 MG/200 ML BAG IV SCH ×2 (10:25→21:14)
[2022-04-20] MEDS: SODIUM CHLORIDE 0.9% 1000ML 1,000 ML IV SCH ×3 (00:33→18:20)
[2022-04-20] MEDS: metroNIDAZOLE 500 MG/100 ML BAG IV SCH ×3 (00:34→16:46)
[2022-04-20] MEDS: CIPROFLOXACIN / D5W 400 MG/200 ML BAG IV SCH ×2 (08:50→20:13)
[2022-04-20 09:59] LABS: Adenovirus F 40/41 PCR Not Detected (NotDetected); Astrovirus PCR Not Detected (NotDetected); Campylobacter PCR Not Detected (NotDetected); Cryptosporidium PCR Not Detected (NotDetected); Cyclospora cayetanensis PCR Not Detected (NotDetected); Entamoeba histolytica PCR Not Detected (NotDetected); Enteroaggregative E.coli(EAEC) Not Detected (NotDetected); Enteropathogenic E.coli (EPEC) Not Detected (NotDetected); Enterotoxigenic E.coli (ETEC) Not Detected (NotDetected); Giardia lamblia PCR Not Detected (NotDetected); Norovirus GI/GII PCR Not Detected (NotDetected); Plesiomonas shigelloides PCR Not Detected (NotDetected); Rotavirus A PCR Not Detected (NotDetected); Salmonella PCR Not Detected (NotDetected); Sapovirus PCR Not Detected (NotDetected); Shiga-like Toxin E.coli (STEC) Not Detected (NotDetected); Shigella/Enteroinvasive E.coli Not Detected (NotDetected); Vibrio cholerae PCR Not Detected (NotDetected); Vibrio species PCR Not Detected (NotDetected); Yersinia enterocolitica PCR Not Detected (NotDetected)
--- NOTE | 2022-04-20 10:24 | Surgery Progress Note ---
Date of Service April 20, 2022 Assessment & Plan (1) Perforation of sigmoid colon due to diverticulitis: Plan: continue IV abx IVF clears for now still with tenderness, pain improved possibly advance diet tomorrow Present on Admission?: Yes Admission and Anticipated Discharge Date Admission Date: April 18, 2022 Subjective feels better taking clears well loose stools, c. diff pending ambulating WBC down to 11 no fevers or chills Review of Systems Constitutional: no fever and no chills Respiratory: no cough and no dyspnea Cardiovascular: no chest pain Gastrointestinal: + abdominal pain and + diarrhea/loose stools; no nausea, no vomiting and no blood in stools Genitourinary: no dysuria Musculoskeletal: no back pain and no neck pain Integumentary: no rash Neurologic: no localized weakness and no generalized weakness Psychiatric: no behavioral changes Endocrine: no fatigue Hematologic / Lymphatic: no easy bleeding and no easy bruising Physical Exam Constitutional: WD/WN, vitals as above Eyes: PERRL, conjunctivae normal, anicteric sclerae ENMT: external ear and nose normal, oropharynx normal Neck: trachea midline Respiratory: normal respiratory effort, lungs clear to auscultation Cardiovascular: RRR, no murmur, no edema Gastrointestinal (Abdomen): Inspection/Auscultation: abdomen normal to inspection and normal bowel sounds; abdomen not distended Percussion/Palpation: + abdomen tender and abdomen soft; no guarding and abdomen not rigid Musculoskeletal: Head/Neck/Chest: normocephalic and head atraumatic Skin: no rashes, warm and dry Results & Data ([facility]) Vital Signs (Past 12 Hours) Vital Signs Temp Pulse Pulse Resp BP Pulse Ox O2 Del Method 04/20/22 09:19 Room Air 04/20/22 07:43 37.2 C 102 H 18 137/80 95 Room Air 04/19/22 22:30 101 H 04/20/22 03:31 36.8 C 102 H 18 130/80 97 Room Air 04/19/22 23:11 36.8 C 100 H 18 138/83 95 Room Air
[2022-04-20] MEDS ORDERED: oxyCODONE/ACETAMINOPHEN 5mg/325mg TAB PO PRN ×2 (17:10)
[2022-04-20] MEDS ORDERED: ALUMINUM/MAGNESIUM/SIMETH (MAALOX MAX) 30 ML UDC PO PRN (17:12)
[2022-04-20] MEDS: ACETAMINOPHEN 1,000 MG/100 ML VIAL IV PRN (17:51)
[2022-04-21] MEDS: metroNIDAZOLE 500 MG/100 ML BAG IV SCH ×3 (00:08→15:45)
[2022-04-21] MEDS: SODIUM CHLORIDE 0.9% 1000ML 1,000 ML IV SCH ×4 (04:39→21:22)
[2022-04-21] MEDS: CIPROFLOXACIN / D5W 400 MG/200 ML BAG IV SCH ×2 (08:45→21:19)
--- NOTE | 2022-04-21 11:00 | Surgery Progress Note ---
Date of Service April 21, 2022 Assessment & Plan (1) Perforation of sigmoid colon due to diverticulitis: Plan: feels better con't IV abx IVF decrease begin fulls Present on Admission?: Yes Admission and Anticipated Discharge Date Admission Date: April 18, 2022 Subjective pain improved taking clears well afebrile Review of Systems Constitutional: no fever and no chills Eyes: no problem reported Respiratory: no cough and no dyspnea Cardiovascular: no chest pain Gastrointestinal: + abdominal pain; no nausea, no vomiting and no diarrhea/loose stools Genitourinary: no dysuria Musculoskeletal: no back pain Integumentary: no problem reported Neurologic: no localized weakness and no generalized weakness Psychiatric: no behavioral changes Hematologic / Lymphatic: no easy bleeding and no easy bruising Physical Exam Constitutional: WD/WN, vitals as above Eyes: PERRL, conjunctivae normal, anicteric sclerae ENMT: external ear and nose normal, oropharynx normal Neck: trachea midline Respiratory: normal respiratory effort, lungs clear to auscultation Cardiovascular: RRR, no murmur, no edema Gastrointestinal (Abdomen): Inspection/Auscultation: abdomen normal to inspection and normal bowel sounds; abdomen not distended Percu ssion/Palpation: + abdomen tender and abdomen soft; no guarding and abdomen not rigid Musculoskeletal: Head/Neck/Chest: normocephalic and head atraumatic Skin: no rashes, warm and dry Results & Data ([facility]) Vital Signs (Past 12 Hours) Vital Signs Temp Pulse Pulse Resp BP Pulse Ox O2 Del Method 04/21/22 06:59 88 04/21/22 06:32 37.3 C 97 H 16 109/63 92 Room Air 04/21/22 03:49 37.3 C 97 H 16 143/84 H 95 Room Air
[2022-04-21] MEDS ORDERED: ACETAMINOPHEN 500 MG TAB PO PRN (21:22)
[2022-04-22] MEDS: SODIUM CHLORIDE 0.9% 1000ML 1,000 ML IV SCH (00:47)
[2022-04-22] MEDS: metroNIDAZOLE 500 MG/100 ML BAG IV SCH ×4 (00:52→23:51)
[2022-04-22 07:26] LABS: Basophils # (auto) 0.02 K/uL (0-0.2); Basophils % (auto) 0.3 %; Eosinophils # (auto) 0.19 K/uL (0-0.50); Eosinophils % (auto) 2.6 %; Hematocrit (blood only) 31.3 % (34.1-44.9); Hemoglobin 10.5 g/dl (12.0-16.0); Immature Granulocytes # (auto) 0.03 K/uL (0.00-0.02); Immature Granulocytes % (auto) 0.4 %; Lymphocytes # (auto) 1.21 K/uL (1.2-3.4); Lymphocytes % (auto) 16.8 %; Mean Corpuscular Hemoglobin 27.7 pg (25.0-34.0); Mean Corpuscular Hgb Conc 33.5 g/dL (32.0-36.0); Mean Corpuscular Volume 82.6 fL (80.0-100.0); Mean Platelet Volume 9.2 fL (9.4-12.3); Monocytes # (auto) 0.77 K/uL (0.24-0.82); Monocytes % (auto) 10.7 %; Neutrophils # (auto) 4.98 K/uL (1.4-6.5); Neutrophils % (auto) 69.2 %; Platelet Count 266 K/uL (130-400); RDW Standard Deviation 39.1 fL (36.4-46.3); Red Blood Count 3.79 M/uL (3.93-5.22)
--- NOTE | 2022-04-22 07:45 | Surgery Progress Note ---
Date of Service April 22, 2022 Assessment & Plan (1) Perforation of sigmoid colon due to diverticulitis: Plan: Patient here with acute sigmoid diverticulitis with perforation and 1.5cm intramural abscess WBC 7.2. Pt afebrile Still with complaints of LLQ discomfort, however improved from admission and not worsening in severity Having + BMs, mostly loose stools, cdiff was checked and is negative She is hungry, will trial advancing to low fiber Continue IV abx while in house, will transition to PO upon dispo Admission and Anticipated Discharge Date Admission Date: April 18, 2022 Supervising Physician Co-Signing Physician Notes Patient seen and examined, labs reviewed, agree with above. 66-year-old female admitted with diverticulitis and small to moderate pneumoperitoneum. She has been on IV antibiotics over the weekend and is doing quite well. Her pain is significantly improved but is turpentine distiller in the left lower quadrant. She has had return of bowel function and is tolerating full liquid diet and is feeling somewhat hungry. On exam she is afebrile stable vitals. Her abdomen is soft, tender to palpation in the left lower quadrant, improved from last week. WBC is normal. We will transition to oral antibiotics, low fiber diet. If tolerates may discharge home tomorrow. Recommend outpatient colonoscopy after 8 weeks, may follow-up after this to discuss possible elective sigmoidectomy Subjective Patient is doing okay. Reports some ongoing LLQ pain, however not worsening in severity and much improved from admission. She is tolerating a liquid diet. Having + bowel function- loose stools. Ambulating the hallways without issue. Physical Exam Physical Exam: awake/alert, no distress Respiratory: normal respiratory effort Gastrointestinal (Abdomen): Inspection/Auscultation: + abdomen distended (mild) Percussion/Palpation: + abdomen tender (stable LLQ ttp ) and abdomen soft Results & Data ([facility]) Vital Signs (Past 12 Hours) Vital Signs Temp Pulse Pulse Resp BP Pulse Ox O2 Del Method 04/22/22 06:36 36.8 C 91 H 18 150/90 H 94 Room Air 04/22/22 02:01 36.5 C 94 H 18 148/85 H 96 Room Air 04/21/22 23:15 87 04/21/22 22:11 36.9 C 88 18 138/81 96 Room Air PG Care Time/CCT Total # of Minutes Spent Total Time Spent with Patient: Total time spent is greater than 50% in coordination of care (as documented) at patient's floor/unit and/or counseling patient: Coding Level of Care Code 53614 SUB INP/OBS CARE Diagnoses Perforation of sigmoid colon due to diverticulitis K57.20
[2022-04-22 07:47] LABS: BUN Creatinine Ratio 8.9 (10-20); Calcium 8.1 mg/dl (8.5-10.1); Creatinine Clr Calc Pharmacy 118.2 ml/min; Est GFR (African American) 114.2 ml/min; Est GFR (Non-African American) 98.5 ml/min; Potassium 3.3 mmol/L (3.5-5.1)
[2022-04-22] MEDS: CIPROFLOXACIN / D5W 400 MG/200 ML BAG IV SCH ×2 (07:54→19:49)
[2022-04-22] MEDS: POTASSIUM CHLORIDE CRTAB 20 MEQ TABCR PO SCH (08:30)
[2022-04-22] MEDS ORDERED: SIMETHICONE 80 MG CHEW PO PRN (14:20)
[2022-04-23 06:55] LABS: Basophils # (auto) 0.02 K/uL (0-0.2); Basophils % (auto) 0.2 %; Eosinophils # (auto) 0.11 K/uL (0-0.50); Eosinophils % (auto) 1.3 %; Hematocrit (blood only) 31.5 % (34.1-44.9); Hemoglobin 10.9 g/dl (12.0-16.0); Immature Granulocytes # (auto) 0.05 K/uL (0.00-0.02); Immature Granulocytes % (auto) 0.6 %; Lymphocytes # (auto) 1.59 K/uL (1.2-3.4); Lymphocytes % (auto) 18.3 %; Mean Corpuscular Hemoglobin 28.1 pg (25.0-34.0); Mean Corpuscular Hgb Conc 34.6 g/dL (32.0-36.0); Mean Corpuscular Volume 81.2 fL (80.0-100.0); Mean Platelet Volume 8.9 fL (9.4-12.3); Monocytes % (auto) 9.2 %; Neutrophils % (auto) 70.4 %; Platelet Count 281 K/uL (130-400); RDW Coefficient of Variation 13.2 % (11.5-14.5); RDW Standard Deviation 38.7 fL (36.4-46.3); Red Blood Count 3.88 M/uL (3.93-5.22); White Blood Count 8.67 K/ul (4.8-10.8)
[2022-04-23] MEDS: POTASSIUM CHLORIDE CRTAB 20 MEQ TABCR PO SCH (07:26)
[2022-04-23] MEDS: metroNIDAZOLE 500 MG/100 ML BAG IV SCH (07:26)
[2022-04-23 07:38] LABS: BUN Creatinine Ratio 8.9 (10-20); Calcium 8.2 mg/dl (8.5-10.1); Creatinine Clr Calc Pharmacy 119.3 ml/min; Est GFR (African American) 114.2 ml/min; Est GFR (Non-African American) 98.5 ml/min; Potassium 3.5 mmol/L (3.5-5.1)
[2022-04-23] MEDS ORDERED: POTASSIUM CHLORIDE CRTAB 20 MEQ TABCR PO STA (08:10)
--- NOTE | 2022-04-23 08:31 | Surgery Progress Note ---
Date of Service April 23, 2022 Assessment & Plan (1) Perforation of sigmoid colon due to diverticulitis: Plan: Patient here with acute sigmoid diverticulitis with perforation and 1.5cm intramural abscess WBC 8.6. Pt afebrile Pain improving each day. Tolerating diet. No n/v. + bowel function Continue on low fiber diet over next few weeks Will need outpatient colonoscopy in ~8weeks and can f/u with Dr. Dill thereafter to discuss surgical options Plan on discharge to home today and complete course of po antibiotics Admission and Anticipated Discharge Date Admission Date: April 18, 2022 Subjective Patient is feeling well. Tolerating low fiber diet. No nausea/vomiting. Passing + gas/BMs. Still will some LLQ pain, but improving. Physical Exam Physical Exam: awake/alert Respiratory: normal respiratory effort Gastrointestinal (Abdomen): Inspection/Auscultation: + abdomen distended (improved) Percussion/Palpation: + abdomen tender (improving discomfort in the LLQ ) and abdomen soft Results & Data ([facility]) Vital Signs (Past 12 Hours) Vital Signs Temp Pulse Pulse Resp BP BP Pulse Ox 04/23/22 08:02 36.6 C 91 H 18 159/89 H 97 04/23/22 04:35 37.1 C 91 H 16 130/78 95 04/22/22 23:40 37.0 C 100 H 16 149/82 H 96 04/22/22 22:00 91 H O2 Del Method 04/23/22 08:02 Room Air 04/23/22 04:35 Room Air 04/22/22 23:40 Room Air 04/22/22 22:00 PG Care Time/CCT Total # of Minutes Spent Total Time Spent with Patient: Total time spent is greater than 50% in coordination of care (as documented) at patient's floor/unit and/or counseling patient: Coding Level of Care Code 50813 SUB INP/OBS CARE 05/08MIN Diagnoses Perforation of sigmoid colon due to diverticulitis K57.20
[2022-04-23] MEDS: CIPROFLOXACIN / D5W 400 MG/200 ML BAG IV SCH (08:36)
--- NOTE | 2022-04-23 11:11 | Discharge Summary ---
Date of Service April 23, 2022 Admission HPI Per Admitting Provider This is a 66-year-old female who presented to the emergency department secondary to abdominal pain. Patient states that she was in her usual state of health yesterday and she attended a high school wrestling match. She simply went to [facility] and ultimately developed some abdominal pain shortly thereafter. She does note that her niece who also ate the same food that she ate also had GI upset and therefore the patient did not seek medical attention initially as she merely thought she had a gastroenteritis. The patient notes that throughout the night she was having diarrhea without melena or hematochezia. She notes that her abdominal pain got progressively worse to the point today when she developed a stabbing pain greatest in her lower abdomen in a bandlike fashion. She has had associated nausea and vomiting. She denies any fevers but did report some shakes or chills. She notes that the pain is nonradiating but does get worse when she walks and it feels somewhat better when she lies still. Patient does report that she has had prior abdominal surgeries. She had an exploratory laparotomy at which time she underwent an appendectomy. She is also had most recently in 2005 a hysterectomy that was performed secondary to fibroids and bleeding. The patient does report that she has had a colonoscopy in June 2018. During this colonoscopy the patient was found to have a 10 mm polyp in the t ransverse colon that was removed with a snare. She was also noted to have diverticulosis of the sigmoid colon and nonbleeding internal hemorrhoids. The patient also further relates that in October 2021 she did not have diverticulitis that was treated successfully as an outpatient. Since arrival to the emergency department the patient has had labs and imaging which independent reviewed. A gallbladder ultrasound showed gallbladder sludge without evidence of acute cholecystitis. Patient subsequently had a obstruction series performed that showed moderate pneumoperitoneum which was suspicious for perforated viscus. A CT scan of the abdomen was ultimately performed that showed acute sigmoid diverticulitis with moderate pneumoperitoneum compatible with a perforation. There is also a 1.5 cm intramural abscess of the sigmoid colon noted. This was not felt to be amendable to percutaneous drainage. There is no evidence of bowel obstruction. (The patient did have a CT scan on 10/11/2021 which showed acute sigmoid diverticulitis with no intraperitoneal free air or abscess.) Labs include a CBC her white blood cell count was elevated 17.7. Hemoglobin and hematocrit are both within normal range as was the platelet count. Chemistry profile showed sodium is 135. Potassium, BUN, and creatinine were all within the normal range. There is no elevation of LFTs or lipase and a COVID test was noted to be negative. Since arrival to the emergency department the patient has received IV fluids in the form of 1 L of normal saline solution. She is also received analgesics in the form of 15 mg of Toradol. Initial antibiotic choice was to be Zosyn however the patient reports an allergy to penicillin which causes hives and she was reluctant to take any palliative penicillin derivatives and therefore her antibiotics were switched to ciprofloxacin and Flagyl. At the time of my interview the patient was uncomfortable but she was able to ambulate independently to the restroom and she was in no distress. It is noteworthy to mention that she was afebrile and normotensive. She was noted to have a slight tachycardia with a heart rate of approximately 113 bpm. Principal Diagnosis perforation of sigmoid colon due to diverticulitis Discharge Exam awake/alert Respiratory normal respiratory effort Gastrointestinal (Abdomen) Inspection/Auscultation: + abdomen distended (improved) Percussion/Palpation: + abdomen tender (improving discomfort in the LLQ ) and abdomen soft Discharge Data Allergies Allergy/AdvReac Type Severity Reaction Status Date / Time Penicillins Allergy Intermediate HIVES A Verified 04/18/22 16:34 CHILD escitalopram AdvReac Intermediate INCREASED Verified 04/18/22 16:34 ANXIETY hydrocodone AdvReac Intermediate HEART Verified 04/18/22 16:34 RACES, FEELS LOOPY oxycodone AdvReac Intermediate HEART Verified 04/18/22 16:34 RACES, FEELS LOOPY venlafaxine AdvReac Intermediate INCREASED Verified 04/18/22 16:34 ANXIETY Consultations 04/18/22 17:56 Consult General Surgery Stat 04/18/22 18:44 ED Decision to Admit Stat Ordered Studies 04/18/22 13:56 US gallbladder Stat 04/18/22 17:55 CT abd pelvis IV con only Stat Hospital Course (1) Perforation of sigmoid colon due to diverticulitis: This is a 66yF who presented to the [facility] ED on 04/18/22 with abdominal pain. A CT a/p was obtained that revealed findings of sigmoid colon diverticulitis with probable 1.5cm intramural abscess with small amount of pneumoperitoneum. No drainable fluid collection. WBC 17 and patient tachycardic in the ER. She was admitted under the surgical service and kept NPO with IVF and started on IV cipro/flagyl. As her symptoms improved her diet was slowly restarted. Over the course of her admission she transitioned from clears and then advanced to fulls and then eventually to low fiber without issues. As she started to have return of bowel function, her stools were initially liquid in nature and cdiff was sent which was negative. She remained on IV abx throughout her hospitalization. WBC downtrended nicely throughout her stay. On 04/23/22 the patient was deemed stable for discharge to home. She remained afebrile, WBC downtrended to normal, she was having + bowel function, tolerating a low fiber diet, and pain continued to improve daily. She was instructed to follow up with GI within 8 weeks time for a colonoscopy and to follow up with general surgery for discussions of possible bowel resection in the future. She expressed understanding and was discharged to home on a course of PO abx to complete, a low fiber diet, and only taking Tylenol for pain. Total Time Total Time Spent Total Time Spent (In Minutes): 15 Discharge Plan Discharge Items Patient Disposition: Home - Self-Care Reason For Visit: DIVERTICULITIS Discharge Diagnosis: diverticulitis Activity: Per Instructions section Lifting: Gradually increase as tolerated Bathing: No limitations Exercise/Sports: Gradually increase as tolerated Driving/Machine Use: no driving if taking any narcotics for pain Non-emergency contact: Primary Care Provider and Surgeon Call non-emergency contact if: you have any medication questions, your symptoms worsen, your pain is not controlled, you have a fever and your temperature is above 101.5 Follow-up/Referrals: Panda Stark DO [Physician] - Henny Bishop MD [Primary Care Provider] - 04/30/22 1:30 pm Jamison Dill DO, FACS [Physician] - (Please call to schedule follow up in clinic after you have had a colonoscopy to discuss surgical options) Diet: Low Fiber Addtl Attending Provider Instructions: Continue on a low fiber diet over the next few weeks until bowel movements normalize Complete full course of antibiotic prescribed to you Please connect with your PCP to set you up with a wild oyster harvester for a colonoscopy in the next 8 weeks. Pending Studies at Discharge: No Stand-Alone Forms[facility] Medications and DC Order Prescriptions: New ciprofloxacin HCl [Cipro] 500 mg tablet 500 mg PO Q12H 10 Days Qty: 20 0RF metronidazole 500 mg tablet 500 mg PO Q8H 10 Days Qty: 30 0RF Continued omeprazole 20 mg capsule,delayed release(DR/EC) 20 mg PO DAILY Qty: 30 5RF atorvastatin 10 mg tablet 10 mg PO QPM Qty: 90 1RF elderberry fruit and flower 460-115 mg capsule 1 cap PO DAILY cholecalciferol (vitamin D3) 25 mcg (1,000 unit) capsule 25 mcg PO DAILY ascorbic acid (vitamin C) [Vitamin C] 500 mg Tablet 500 mg PO DAILY Discontinued doxycycline hyclate 100 mg capsule 100 mg PO BID Rx Instructions: STARTED 04/11/22 FOR 7 DAYS. Discharge Orders: Discharge Order (Routine); Ordered 04/23/22 Ordered By: Tran Jain/Other Patient Handouts: Low-Fiber Diet Admission Data Admit Date/Time: 04/18/22 19:39 Attending Provider: Jamison Dill Admit Provider: Jamison Dill Primary Care Provider: Henny Bishop V. Other Providers: Jamison Dill Other Interventions: Discharge Summary Assessment (RN) Last Done: 04/23/22 10:30 Coding Level of Care Code HOSP INP/OBS DISCH 30 MIN/LESS Diagnoses Perforation of sigmoid colon due to diverticulitis K57.20
== END 2022-04-23 10:58 | disposition home or self-care (01) | DRG 392 ==
LOC: ED 13:40 → 2N 19:39
DX: Z88.8 Allergy status to other drugs, medicaments and biological substances; Z88.0 Allergy status to penicillin; Z20.822 Contact with and (suspected) exposure to COVID-19; Z79.899 Other long term (current) drug therapy; K57.20 Diverticulitis of large intestine with perforation and abscess without bleeding; Z88.5 Allergy status to narcotic agent; R00.0 Tachycardia, unspecified